=== PATIENT | female | born 1985 | race African-American/Black ===

== ENCOUNTER 2017-10-21 08:31 | Inpatient (IN) | payer OTHER ==
[2017-10-21 10:47] VITALS: BMI 23.5
--- NOTE | 2017-10-21 14:11 | HP ---
CIWA Score - CIWA Score Nausea/Vomitin-No Nausea/No Vomiting Muscle Tremors: 3 Anxiety: 4-Mod. Anxious/Guarded Agitation: 4-Moderately Restless Paroxysmal Sweats: 1-Minimal Palms Moist Orientation: 0-Oriented Tacttile Disturbances: 3-Moderate Itch/Numb/Burn Auditory Disturbances: 0-None Visual Disturbances: 0-None Headache: 2-Mild CIWA-Ar Total Score: 17 Admission ROS S - HPI Chief Complaint: WITHDRAWAL SX Allergies/Adverse Reactions: Allergies Allergy/AdvReac Type Severity Reaction Status Date / Time amoxicillin Allergy Severe nausea and Verified 10/21/17 11:14 vomiting History of Present Illness: 31 Y/O FEMALE WITH A HX OF ALCOHOL, COCAINE,XANAX,OXYCONTIN AND MARIJUANA DEPENDENCE SEEKING DETOX [place]. Exam Limitations: No Limitations - Ebola screening Have you traveled outside of the country in the last 21 days: No Have you had contact with anyone from an Ebola affected area: No Have you been sick,other than usual withdrawal symptoms: No - Review of Systems Constitutional: Chills, Loss of Appetite, Night Sweats, Changes in sleep EENT: reports: Blurred Vision (DUE ALCOHOL), Tearing, Nose Congestion, Dental Problems (FALSE TEETH) Respiratory: reports: Shortness of Breath (HX ASTHMA), Wheezing Cardiac: reports: Lightheadedness, Chest Tightness GI: reports: Constipated, Nausea, Poor Fluid Intake, Abdominal cramping : reports: Dysuria, Pain (PELVIC AREA) Musculoskeletal: reports: Back Pain, Joint Pain, Muscle Pain Integumentary: reports: Bruising, Rash (CHEST/NECK-PATCHY DISCOLORATION) Neuro: reports: Headache, Numbness, Tingling, Unsteady Gait, Dizziness Endocrine: reports: No Symptoms Reported Hematology: reports: Anemia Psychiatric: reports: Orientated x3, Anxious, Depressed Other Systems: Reviewed and Negative Patient History - Patient Medical History Hx Anemia: Yes Hx Asthma: Yes (MDI) Hx Chronic Obstructive Pulmonary Disease (COPD): No Hx Cardiac Disorders: No Hx Hypertension: No Hx Hypercholesterolemia: No HX Cerebrovascular Accident: No Hx Seizures: No Hx Diabetes: No Hx Gastrointestinal Disorders: No Hx Genitourinary Disorders: No Hx Sexually Transmitted Disorders: No Hx Renal Disease (ESRD): No Hx Thyroid Disease: No Hx Human Immunodeficiency Virus (HIV): No (NEGATIVE HX) Hx Hepatitis C: No Hx Depression: Yes (NO CURRENT MED) Hx Suicide Attempt: No (DENIES) Hx Schizophrenia: No - Patient Surgical History Past Surgical History: Yes Hx Neurologic Surgery: No Hx Cataract Extraction: No Hx Cardiac Surgery: No Hx Lung Surgery: No Hx Breast Surgery: No Hx Breast Biopsy: No Hx Abdominal Surgery: No Hx Appendectomy: No Hx Cholecystectomy: No Hx Genitourinary Surgery: No Hx Section: Yes (x4) Hx Orthopedic Surgery: No Anesthesia Reaction: No - PPD History Previous Implant?: Yes Documented Results: Negative w/o proof Implanted On Prior [facility] Admission?: No PPD to be Administered?: Yes - Reproductive History Patient is a Female of Child Bearing Age (11 -55 yrs old): Yes Last Menstrual Period: 10/09/17 LMP comment: IRREGULAR Patient : No - Smoking Cessation Smoking history: Current every day smoker Have you smoked in the past 12 months: Yes Aproximately how many cigarettes per day: 10 Hx Chewing Tobacco Use: No Initiated information on smoking cessation: Yes 'Breaking Loose' booklet given: 10/21/17 - Substance & Tx. History Hx Alcohol Use: Yes (COGNAC/BEER) Hx Substance Use: Yes (COCAINE/MARIJUANA/XANAX/OXYCONTIN) Substance Use Type: Alcohol, Cocaine, Marijuana, Tranquilizers Hx Substance Use Treatment: No (NEVER BEEN IN [place]) - Substances Abused Cocaine Route: Inhalation Frequency: Daily Amount used: $50 Age of first use: 21 Date of Last Use: 10/20/17 Oxycontin Route: Oral Frequency: 1-2 times per week Amount used: 4 (30 mg.) Age of first use: 30 Date of Last Use: 10/18/17 Alcohol-cognac/beer Route: Oral Frequency: Daily Amount used: 1 pt./2 (24 oz.) Age of first use: 18 Date of Last Use: 10/21/17 Xanax Route: Oral Frequency: 3-6 times per week Amount used: 4-6 mg. Age of first use: 30 Date of Last Use: 10/18/17 Marijuana/Hashish Route: Smoking Frequency: Daily Amount used: 4 BLUNTS Age of first use: 12 Date of Last Use: 10/21/17 Family Disease History - Family Disease History Family History: Denies Admission Physical Exam [facility] - Vital Signs Vital Signs: Vital Signs - 24 hr 10/21/17 10:38 Temperature 96.8 F L Pulse Rate 92 H Respiratory 20 Rate Blood Pressure 99/67 - Physical General Appearance: Yes: Moderate Distress, Anxious HEENTM: Yes: EOMI, Normocephalic, ROBERTH, Pharynx Normal, Nasal Congestion, Rhinorrhea Respiratory: Yes: Chest Non-Tender, Lungs Clear, Normal Breath Sounds, No Respiratory Distress Neck: Yes: No masses,lesions,Nodules, Supple, Trachea in good position, Other ( DISCOLORATION OF SKIN--RASH) Breast: Yes: Breast Exam Deferred Cardiology: Yes: Regular Rhythm, Regular Rate, S1, S2 Abdominal: Yes: Normal Bowel Sounds, Non Tender, Flat Genitourinary: Yes: Other (N/C) Back: Yes: Within Normal Limits Musculoskeletal: Yes: full range of Motion, Gait Steady Extremities: Yes: Normal Range of Motion, Non-Tender Neurological: Yes: tree puller II-XII NML intact, Fully Oriented, Alert, Motor Strength 5/5 Integumentary: Yes: Dry, Warm Lymphatic: Yes: Within Normal Limits - Diagnostic (1) Alcohol dependence with uncomplicated withdrawal Current Visit: Yes Status: Acute (2) Cocaine dependence, uncomplicated Current Visit: Yes Status: Acute (3) Cannabis dependence, uncomplicated Current Visit: Yes Status: Acute (4) Asthma Current Visit: Yes Status: Chronic Qualifiers: Asthma severity: mild Asthma persistence: unspecified Asthma complication type: uncomplicated Qualified Code(s): J45.909 - Unspecified asthma, uncomplicated (5) History of anemia Current Visit: Yes Status: Suspected (6) Eczema Current Visit: Yes Status: Chronic Qualifiers: Eczema type: unspecified Qualified Code(s): L30.9 - Dermatitis, unspecified Cleared for Admission [facility] - Detox or Rehab [facility] Level of Care: Medically Managed Detox Regimen/Protocol: Librium [facility] Breath Alcohol Content Breath Alcohol Content: 0.082 Urine Pregancy Test - Result Urine Test Results: Negative- NO Line Present Urine Drug Screen - Results Drug Screen Negative: No Urine Drug Screen Results: THC-Marijuana, TRACY-Cocaine
[2017-10-21] MEDS ORDERED: P-EPHED 60MG/TRIPROLIDI 2.5MG TABLET PO PRN (14:25)
[2017-10-21] MEDS ORDERED: MAGNESIUM HYDROX 2400MG/30ML ORAL SUSPENSION 30 ML CUP PO PRN (14:25)
[2017-10-21] MEDS ORDERED: IBUPROFEN 400 MG TABLET (FP) PO PRN (14:25)
[2017-10-21] MEDS ORDERED: LOPERAMIDE HCL 2 MG CAPSULE PO PRN (14:25)
[2017-10-21] MEDS ORDERED: guaiFENesin/D-METHORPHAN HB 10 ML UNIT-DOSE CUPS PO PRN (14:25)
[2017-10-21] MEDS ORDERED: chlordiazePOXIDE HCL 25 MG CAPSULE PO PRN (14:25)
[2017-10-21] MEDS ORDERED: MAGNESIUM CITRATE 300 ML BOTTLE PO PRN (14:25)
[2017-10-21] MEDS ORDERED: NICOTINE POLACRILEX 2 MG GUM BUC PRN (14:25)
[2017-10-21] MEDS ORDERED: MENTHOL/PHENOL 1 EACH UD MM PRN (14:25)
[2017-10-21] MEDS ORDERED: MAG HYDROX/AL HYDROX/SIMETH 30 ML UNIT-DOSE CUP PO PRN (14:25)
[2017-10-21] MEDS ORDERED: ALBUTEROL SO4 18 GM HFA INHALER IH PRN (14:31)
[2017-10-21] MEDS ORDERED: chlordiazePOXIDE HCL 25 MG CAPSULE PO ONE (14:51)
[2017-10-21] MEDS: NICOTINE 14 MG/24 HOURS TOPICAL PATCH TD SCH (15:06)
[2017-10-21] MEDS: HYDROCORTISONE 1% TOPICAL CREAM 30 GM TUBE TP SCH ×2 (15:06→22:14)
[2017-10-21 15:50] LABS: HIV 1 & 2 AB NEGATIVE; HIV 1 AGp24 NEGATIVE
[2017-10-21] MEDS: chlordiazePOXIDE HCL 25 MG CAPSULE PO SCH ×2 (17:42→22:13)
[2017-10-21 20:15] LABS: MCH 29.9 pg (25.7-33.7); MEAN CELL VOLUME 90.8 fl (80-96); PLATELET COUNT 309 K/MM3 (134-434); RDW 14.3 % (11.6-15.6); WHITE BLOOD COUNT 7.5 K/mm3 (4.0-10.0)
[2017-10-21 20:40] LABS: ALBUMIN 3.8 g/dl (3.4-5.0); ANION GAP 6 (8-16); CALCIUM 8.3 mg/dL (8.5-10.1); CO2 27 mmol/L (21-32); GLUCOSE,RANDOM 91 mg/dL (74-106); SGOT/AST 13 U/L (15-37); SGPT/ALT 19 U/L (12-78)
[2017-10-21 20:43] LABS: ALK PHOS 65 U/L (45-117); BILIRUBIN,TOTAL 0.3 mg/dL (0.2-1.0); TOT PROT 7.5 g/dl (6.4-8.2)
[2017-10-21] MEDS: THIAMINE HCL 100 MG TABLET (FP) PO SCH (22:12)
[2017-10-21 23:10] LABS: PH,URINE 5.5 (5.0-8.0); URINE APPEARANCE CLEAR; URINE BILIRUBIN NEGATIVE (NEGATIVE); URINE BLOOD NEGATIVE (NEGATIVE); URINE COLOR LT. YELLOW; URINE GLUCOSE (UA) NEGATIVE (NEGATIVE); URINE KETONE NEGATIVE (NEGATIVE); URINE NITRITE NEGATIVE (NEGATIVE); URINE PROTEIN NEGATIVE (NEGATIVE); URINE UROBILINOGEN 0.2 mg/dL (0.2-1.0)
[2017-10-22 00:08] LABS: SICKLE CELL SCREEN NEGATIVE (NEGATIVE)
[2017-10-22] MEDS: chlordiazePOXIDE HCL 25 MG CAPSULE PO SCH ×4 (05:39→22:25)
--- NOTE | 2017-10-22 07:47 | CONSULT ---
[facility] Psychiatric Consult - Data Date of interview: 10/22/17 Admission source: [facility] Identifying data: This is 31 years old female with no psychiatric hospitalization history intoxicated with: Alcohol, Opioids, Cocaine, Xanax and Cannabis Substance Abuse History: - Substance & Tx. History. Hx Alcohol Use: Yes (COGNAC /BEER). Hx Substance Use: Yes (COCAINE/MARIJUANA/XANAX/OXYCONTIN). Substance Use Type: Alcohol, Cocaine, Marijuana, Tranquilizers. Hx Substance Use Treatment: No (NEVER BEEN IN [place]). - Substances Abused. Cocaine. Route: Inhalation. Frequency: Daily. Amount used: $50. Age of first use: 21. Date of Last Use: 10/20/17. Oxycontin. Route: Oral. Frequency: 1-2 times per week. Amount used: 4 (30 mg.). Age of first use: 30. Date of Last Use: . Alcohol-cognac/beer. Route: Oral. Frequency: Daily. Amount used: 1 pt./2 (24 oz.). Age of first use: 18. Date of Last Use: 10/21/17. Xanax. Route: Oral. Frequency: 3-6 times per week. Amount used: 4-6 mg. Age of first use: 30. Date of Last Use: 10/18/17. Marijuana/Hashish. Route: Smoking. Frequency: Daily. Amount used: 4 BLUNTS. Age of first use: 12. Date of Last Use: 10/21/17 Medical History: Asthma, Anemia history, Eczema history Psychiatric History: Denies past psychiatric history Physical/Sexual Abuse/Trauma History: Denies Additional Comment: Observation. Detox Unit Care Protocol Mental Status Exam - Mental Status Exam Alert and Oriented to: Person Cognitive Function: Fair Mood: Sad Affect: Flat Patient Behavior: Sedated Speech Pattern: Delayed Voice Loudness: Mildly Soft/Quiet Thought Process: Circumstantial Thought Disorder: Being Controlled Hallucinations: Denies Suicidal Ideation: Denies Homicidal Ideation: Denies Insight/Judgement: Fair Sleep: Difficulty falling asleep Appetite: Weight loss Muscle strength/Tone: Mild Hypotonicity Gait/Station: Shuffling Additional Comments: Observation. Detox Unit Care Protocol Psychiatric Findings - Problem List ([place] 1, 2,3) (1) Alcohol dependence with uncomplicated withdrawal Current Visit: Yes Status: Acute (2) Cannabis dependence, uncomplicated Current Visit: Yes Status: Acute (3) Cocaine dependence, uncomplicated Current Visit: Yes Status: Acute - Initial Treatment Plan Initial Treatment Plan: Observation. Detox Unit Care Protocol
[2017-10-22] MEDS: HYDROCORTISONE 1% TOPICAL CREAM 30 GM TUBE TP SCH ×3 (08:22→22:25)
[2017-10-22 10:10] LABS: URINE LEUK ESTERASE 3+ (NEGATIVE)
[2017-10-22] MEDS: NICOTINE 14 MG/24 HOURS TOPICAL PATCH TD SCH (10:42)
[2017-10-22] MEDS: PRENATAL VITAMINS W/ FOLIC ACID TABLET (FP) PO SCH (10:42)
[2017-10-22] MEDS: ACETAMINOPHEN 325 MG TABLET (FP) PO PRN (10:43)
[2017-10-22 10:52] LABS: URINE BACTERIA MANY /hpf (NEGATIVE); URINE RBC 0-3 /hpf (0-3); URINE WBC 15-20 (0-5)
--- NOTE | 2017-10-22 12:48 | EKG ---
Test Reason : Blood Pressure : / mmHG Vent. Rate : 080 BPM Atrial Rate : 080 BPM P-R Int : 162 ms QRS Dur : 084 ms QT Int : 376 ms P-R-T Axes : 021 059 043 degrees QTc Int : 433 ms NORMAL SINUS RHYTHM NORMAL ECG NO PREVIOUS ECGS AVAILABLE Confirmed by DARI TUCKER, GIULIANA ([id number]) on 10/22/2017 12:48:38 PM Referred By: MARIO ZEPEDA Confirmed By:GIULIANA CHAPIN MD
[2017-10-22] MEDS: THIAMINE HCL 100 MG TABLET (FP) PO SCH (22:25)
[2017-10-23] MEDS: chlordiazePOXIDE HCL 25 MG CAPSULE PO SCH ×2 (05:22→10:40)
[2017-10-23] MEDS: HYDROCORTISONE 1% TOPICAL CREAM 30 GM TUBE TP SCH ×3 (05:24→22:31)
[2017-10-23] MEDS: PRENATAL VITAMINS W/ FOLIC ACID TABLET (FP) PO SCH (10:40)
[2017-10-23] MEDS: NICOTINE 14 MG/24 HOURS TOPICAL PATCH TD SCH (10:40)
[2017-10-23] MEDS: ACETAMINOPHEN 325 MG TABLET (FP) PO PRN ×2 (10:41→18:31)
--- NOTE | 2017-10-23 13:15 | PN ---
[facility] Progress Note (SOAP) Subjective: sweats shakes interrupted sleep cramps Objective: 10/23/17 13:14 Vital Signs Temperature 98.4 F 10/23/17 09:34 Pulse Rate 91 H 10/23/17 09:34 Respiratory Rate 18 10/23/17 09:34 Blood Pressure 105/69 10/23/17 09:34 O2 Sat by Pulse Oximetry (%) Laboratory Tests 10/21/17 10/21/17 10/21/17 12:56 14:54 14:54 WBC 7.5 D RBC 4.22 Hgb 12.7 Hct 38.4 MCV 90.8 MCH 29.9 MCHC 33.0 RDW 14.3 Plt Count 309 MPV 9.0 Sickle Cell Screen Negative Sodium 139 Potassium 4.4 Chloride 106 Carbon Dioxide 27 Anion Gap 6 L BUN 7 Creatinine 1.0 D Creat Clearance w eGFR > 60 Random Glucose 91 Calcium 8.3 L Total Bilirubin 0.3 D AST 13 L ALT 19 D Alkaline Phosphatase 65 Total Protein 7.5 Albumin 3.8 Urine Color Urine Appearance Urine pH Ur Specific [place] Urine Protein Urine Glucose (UA) Urine Ketones Urine Blood Urine Nitrite Urine Bilirubin Urine Urobilinogen Ur Leukocyte Esterase Urine RBC Urine WBC Ur Epithelial Cells Urine Bacteria RPR Titer HIV 1&2 Antibody Screen Negative HIV P24 Antigen Negative 10/21/17 10/22/17 19:00 06:00 WBC RBC Hgb Hct MCV MCH MCHC RDW Plt Count MPV Sickle Cell Screen Sodium Potassium Chloride Carbon Dioxide Anion Gap BUN Creatinine Creat Clearance w eGFR Random Glucose Calcium Total Bilirubin AST ALT Alkaline Phosphatase Total Protein Albumin Urine Color Lt. yellow Urine Appearance Clear Urine pH 5.5 Ur Specific [place] 1.010 Urine Protein Negative Urine Glucose (UA) Negative Urine Ketones Negative Urine Blood Negative Urine Nitrite Negative Urine Bilirubin Negative Urine Urobilinogen 0.2 Ur Leukocyte Esterase 3+ H Urine RBC 0-3 Urine WBC 15-20 Ur Epithelial Cells Moderate Urine Bacteria Many RPR Titer Nonreactive HIV 1&2 Antibody Screen HIV P24 Antigen aaox3 ambulating no acute distress Assessment: 10/23/17 13:15 withdrawal sx Plan: continue detox increase fluids flexiril prn
--- NOTE | 2017-10-23 13:20 | PN ---
S CIWA - CIWA Score Nausea/Vomitin-No Nausea/No Vomiting Muscle Tremors: 4-Moderate,w/Arms Extend Anxiety: 3 Agitation: 3 Paroxysmal Sweats: 3 Orientation: 0-Oriented Tacttile Disturbances: 0-None Auditory Disturbances: 0-None Visual Disturbances: 0-None Headache: 0-None Present CIWA-Ar Total Score: 13
[2017-10-23] MEDS: chlordiazePOXIDE 5 MG CAPSULE PO SCH ×2 (17:58→22:32)
[2017-10-23] MEDS: CYCLOBENZAPRINE HCL 10 MG TABLET (FP) PO PRN (18:31)
[2017-10-23] MEDS: THIAMINE HCL 100 MG TABLET (FP) PO SCH (22:32)
[2017-10-24] MEDS: HYDROCORTISONE 1% TOPICAL CREAM 30 GM TUBE TP SCH (06:53)
[2017-10-24] MEDS: chlordiazePOXIDE 5 MG CAPSULE PO SCH (06:55)
[2017-10-24] MEDS: CYCLOBENZAPRINE HCL 10 MG TABLET (FP) PO PRN (07:14)
[2017-10-24] MEDS: ACETAMINOPHEN 325 MG TABLET (FP) PO PRN (07:15)
--- NOTE | 2017-10-24 09:18 | DS ---
[facility] Detox Discharge Summary Admission Date: 10/21/17 Discharge Date: 10/24/17 - History Present History: Alcohol Dependence, Cannabis Dependence, Cocaine Dependence Additional Comments: patient has uti 1 dose of bactrim and presecription given when discharged, requesting to accelearqate detox as she needs to be in court today and has not been ahaving symptoms was refusing medication, medically stable, detox scheduled individualized for regular dischargge today. Pertinent Past History: asthma, anxiety, depression , insomnia, nicotine dependence - Physical Exam Results Vital Signs: Vital Signs Temperature 97.8 F 10/24/17 06:42 Pulse Rate 78 10/24/17 06:42 Respiratory Rate 18 10/24/17 06:42 Blood Pressure 99/60 10/24/17 06:42 O2 Sat by Pulse Oximetry (%) Laboratory Tests 10/21/17 10/21/17 10/21/17 12:56 14:54 14:54 WBC 7.5 D RBC 4.22 Hgb 12.7 Hct 38.4 MCV 90.8 MCH 29.9 MCHC 33.0 RDW 14.3 Plt Count 309 MPV 9.0 Sickle Cell Screen Negative Sodium 139 Potassium 4.4 Chloride 106 Carbon Dioxide 27 Anion Gap 6 L BUN 7 Creatinine 1.0 D Creat Clearance w eGFR > 60 Random Glucose 91 Calcium 8.3 L Total Bilirubin 0.3 D AST 13 L ALT 19 D Alkaline Phosphatase 65 Total Protein 7.5 Albumin 3.8 Urine Color Urine Appearance Urine pH Ur Specific [place] Urine Protein Urine Glucose (UA) Urine Ketones Urine Blood Urine Nitrite Urine Bilirubin Urine Urobilinogen Ur Leukocyte Esterase Urine RBC Urine WBC Ur Epithelial Cells Urine Bacteria RPR Titer HIV 1&2 Antibody Screen Negative HIV P24 Antigen Negative 10/21/17 10/22/17 19:00 06:00 WBC RBC Hgb Hct MCV MCH MCHC RDW Plt Count MPV Sickle Cell Screen Sodium Potassium Chloride Carbon Dioxide Anion Gap BUN Creatinine Creat Clearance w eGFR Random Glucose Calcium Total Bilirubin AST ALT Alkaline Phosphatase Total Protein Albumin Urine Color Lt. yellow Urine Appearance Clear Urine pH 5.5 Ur Specific [place] 1.010 Urine Protein Negative Urine Glucose (UA) Negative Urine Ketones Negative Urine Blood Negative Urine Nitrite Negative Urine Bilirubin Negative Urine Urobilinogen 0.2 Ur Leukocyte Esterase 3+ H Urine RBC 0-3 Urine WBC 15-20 Ur Epithelial Cells Moderate Urine Bacteria Many RPR Titer Nonreactive HIV 1&2 Antibody Screen HIV P24 Antigen Pertinent Admission Physical Exam Findings: withdrawal sx, uti, asthma - Treatment Hospital Course: Detox Protocol Followed, Detoxed Safely, Responded well, Discharged Condition Good, Rehab Referral Accepted Patient has Accepted a Rehab Referral to: Yes, new focus - Medication Discharge Medications: Ambulatory Orders Albuterol Sulfate Inhaler - [Ventolin HFA Inhaler -] 2 inh PO Q4H PRN #1 inhaler 10/24/17 Sulfamethoxazole/Trimethoprim [Bactrim DS -] 1 each PO BID 5 Days #10 tablet 12/10 - Diagnosis (1) Alcohol dependence with uncomplicated withdrawal Current Visit: Yes Status: Acute (2) Cannabis dependence, uncomplicated Current Visit: Yes Status: Acute (3) Cocaine dependence, uncomplicated Current Visit: Yes Status: Acute (4) Asthma Current Visit: Yes Status: Chronic Qualifiers: Asthma severity: mild Asthma persistence: unspecified Asthma complication type: uncomplicated Qualified Code(s): J45.909 - Unspecified asthma, uncomplicated (5) Eczema Current Visit: Yes Status: Chronic Qualifiers: Eczema type: unspecified Qualified Code(s): L30.9 - Dermatitis, unspecified (6) UTI (urinary tract infection) Current Visit: Yes Status: Acute - AMA Did Patient Leave Against Medical Advice: No
[2017-10-24] MEDS ORDERED: SULFAMETHOXAZOLE/TRIMETHOPRIM 800MG/160MG D.S. TABLET PO SCH (10:00)
[2017-10-24 10:06] VITALS: BP 127/68; PULSE 102; TEMP 99
[2017-10-24] MEDS: NICOTINE 14 MG/24 HOURS TOPICAL PATCH TD SCH (10:06)
[2017-10-24] MEDS: PRENATAL VITAMINS W/ FOLIC ACID TABLET (FP) PO SCH (10:09)
[2017-10-24] MEDS ORDERED: chlordiazePOXIDE HCL 10 MG CAPSULE PO SCH ×2 (11:00→17:00)
== END 2017-10-24 10:32 | disposition home or self-care (01) | DRG 774 ==
LOC: YASAS 08:31 → Y6N 12:38
PROVIDERS: ADMIT Internal Medicine; ATTEND Internal Medicine
PROC: HZ2ZZZZ Detoxification Services for Substance Abuse Treatment (ICD-10-PCS; principal; 2017-10-21)
DX: F10.230 Alcohol dependence with withdrawal, uncomplicated (principal); F14.20 Cocaine dependence, uncomplicated; F32.9 Major depressive disorder, single episode, unspecified; J45.909 Unspecified asthma, uncomplicated; L30.9 Dermatitis, unspecified; Z86.2 Personal history of diseases of the blood and blood-forming organs and certain disorders involving the immune mechanism
CPT/HCPCS: 36415; 80053; 81003; 81015; 85027; 85660; 86593; 87389; 93005; 93010